=== PATIENT | male | born 1985 | race African-American/Black ===

== ENCOUNTER 2024-02-02 23:35 | Emergency (ER) | payer OTHER ==
[2024-02-02 23:47] VITALS: TEMP 98.7; BMI 45.6
[2024-02-03 01:57] VITALS: BP 151/88; PULSE 90; RESP 20
[2024-02-03 02:24] LABS: VENOUS BASE EXCESS 3.8 mmol/L (-2-2); VENOUS O2 SATURATION 43.3 % (70-80); VENOUS PH 7.333 (7.310-7.410)
[2024-02-03 02:26] LABS: BASO % 0.5 % (0-2.0); EOS % 1.8 % (0-4.5); HEMATOCRIT 43.8 % (35.4-49); HEMOGLOBIN 14.7 GM/dL (11.7-16.9); MCHC 33.5 g/dl (32.0-35.9); MEAN CELL VOLUME 92.5 fl (80-96); MEAN PLT VOLUME 9.2 fl (7.5-11.1); MONO % 8.8 % (3.8-10.2); NEUT % 70.9 % (42.8-82.8); PLATELET COUNT 197 10^3/uL (134-434); RBC 4.73 M/mm3 (4.00-5.60); RDW 17.3 % (11.9-15.9); WHITE BLOOD COUNT 10.9 K/mm3 (4.0-10.0)
[2024-02-03] MEDS: ALBUTEROL SO4 2.5/IPRATROPIUM 0.5 INH SOL 3 ML VIAL.NEB. NEB ONE (02:36)
[2024-02-03] MEDS ORDERED: ALBUTEROL SO4 2.5/IPRATROPIUM 0.5 INH SOL 3 ML VIAL.NEB. NEB ONE (02:38)
[2024-02-03 02:40] LABS: INR 1.24 (0.83-1.09); PROTHROMBIN TIME (PATIENT) 13.9 SEC (9.7-13.0)
[2024-02-03 02:44] LABS: POTASSIUM 4.8 mmol/L (3.5-5.1)
[2024-02-03 02:46] LABS: CALCIUM 8.8 mg/dL (8.5-10.1)
[2024-02-03 02:47] LABS: ALBUMIN 4.1 g/dl (3.4-5.0); BLOOD UREA NITROGEN 15.1 mg/dL (7-18); MAGNESIUM 1.9 mg/dL (1.8-2.4)
[2024-02-03 02:50] LABS: CREATININE 1.8 mg/dL (0.55-1.3)
[2024-02-03 02:51] LABS: BILIRUBIN,TOTAL 0.6 mg/dL (0.2-1); TOT PROT 8.3 g/dl (6.4-8.2)
[2024-02-03 02:55] LABS: N-TERMINAL BNP 16.2 pg/ml (5-125)
[2024-02-03] MEDS: LEVOTHYROXINE SODIUM 100 MCG 5 ML VIAL IVPUSH ONE (04:37)
== END 2024-02-03 06:05 | disposition left against medical advice (07) ==
LOC: JER 23:35
PROC: 3E033GC Introduction of Other Therapeutic Substance into Peripheral Vein, Percutaneous Approach (ICD-10-PCS; principal; 2024-02-03)
PROC: 3E0F7GC Introduction of Other Therapeutic Substance into Respiratory Tract, Via Natural or Artificial Opening (ICD-10-PCS; 2024-02-03)
DX: E03.9 Hypothyroidism, unspecified (principal); M79.89 Other specified soft tissue disorders; M79.671 Pain in right foot; R06.02 Shortness of breath
CPT/HCPCS: 36415; 71045-TC-FY; 80053; 82533; 82803; 83735; 83880; 84439; 84443; 84484; 85025; 85610; 93005; 93010; 93970-TC; 99285-25

== ENCOUNTER 2024-03-28 00:17 | Emergency (ER) | payer OTHER ==
[2024-03-28 00:25] VITALS: BP 133/82; PULSE 93; RESP 18; TEMP 98.4; BMI 50.5
[2024-03-28] MEDS ORDERED: IBUPROFEN 400 MG TABLET (FP) PO ONE (01:00)
[2024-03-28] MEDS: IBUPROFEN 400 MG TABLET (FP) PO ONE (01:04)
[2024-03-28] MEDS ORDERED: AMOX TR/POT CLAV 875MG/125MG TABLETS (FP) ONE (01:57)
[2024-03-28] MEDS ORDERED: AZITHROMYCIN 500 MG TABLET ONE (01:57)
[2024-03-28] MEDS: AMOX TR/POT CLAV 875MG/125MG TABLETS (FP) PO ONE (01:59)
[2024-03-28] MEDS: AZITHROMYCIN 250 MG TABLET PO ONE (01:59)
[2024-03-28 02:03] LABS: HIV INTERPRETATION NEGATIVE (NEGATIVE)
== END 2024-03-28 02:03 | disposition home or self-care (01) ==
LOC: JER 00:17
DX: R20.2 Paresthesia of skin (principal); R05.9 Cough, unspecified; Z20.822 Contact with and (suspected) exposure to COVID-19
CPT/HCPCS: 0241U-QW; 36415; 71046-TC-FY; 87389; 93005; 93010; 99285-25

== ENCOUNTER 2024-06-06 16:56 | Inpatient (IN) | payer OTHER ==
[2024-06-06] MEDS ORDERED: ONDANSETRON 4 MG/2 ML VIAL ONE (18:19)
[2024-06-06 18:25] LABS: VENOUS BASE EXCESS 5.4 mmol/L (-2-2); VENOUS O2 SATURATION 41.9 % (70-80); VENOUS PCO2 63.4 mmHg (38-52); VENOUS PH 7.341 (7.310-7.410)
[2024-06-06 18:25] LABS: WHITE BLOOD COUNT 9.1 K/mm3 (4.0-10.0)
[2024-06-06 18:26] LABS: BASO % 0.8 % (0-2.0); EOS % 3.2 % (0-4.5); HEMATOCRIT 44.7 % (35.4-49); HEMOGLOBIN 14.9 GM/dL (11.7-16.9); LYMPH % 25.1 % (8-40); MCH 30.2 pg (25.7-33.7); MCHC 33.4 g/dl (32.0-35.9); MEAN CELL VOLUME 90.5 fl (80-96); MONO % 6.5 % (3.8-10.2); NEUT % 64.4 % (42.8-82.8); PLATELET COUNT 217 10^3/uL (134-434); RBC 4.93 M/mm3 (4.00-5.60); RDW 15.5 % (11.9-15.9)
[2024-06-06] MEDS: LACTATED RINGERS SOLUTION 1000 ML INFUS.BAG IV ONE (18:36)
[2024-06-06] MEDS: ONDANSETRON 4 MG/2 ML VIAL IVPUSH ONE (18:37)
[2024-06-06 18:48] LABS: POTASSIUM 4.2 mmol/L (3.5-5.1)
[2024-06-06 18:50] LABS: CALCIUM 9.4 mg/dL (8.5-10.1)
[2024-06-06 18:51] LABS: ALBUMIN 3.7 g/dl (3.4-5.0); BLOOD UREA NITROGEN 14.6 mg/dL (7-18); MAGNESIUM 2.2 mg/dL (1.8-2.4)
[2024-06-06 18:54] LABS: CREATININE 1.9 mg/dL (0.55-1.3)
[2024-06-06 18:55] LABS: BILIRUBIN,TOTAL 0.3 mg/dL (0.2-1); TOT PROT 7.6 g/dl (6.4-8.2)
[2024-06-06 19:37] LABS: HIV INTERPRETATION NEGATIVE (NEGATIVE)
[2024-06-06 20:33] LABS: PH,URINE 5.5 (5.0-8.0); URINE APPEARANCE CLEAR; URINE BILIRUBIN NEGATIVE (NEGATIVE); URINE COLOR YELLOW; URINE GLUCOSE (UA) NEGATIVE (NEGATIVE); URINE KETONE NEGATIVE (NEGATIVE); URINE LEUK ESTERASE NEGATIVE (NEGATIVE); URINE NITRITE NEGATIVE (NEGATIVE); URINE PROTEIN NEGATIVE (NEGATIVE)
[2024-06-06 22:54] LABS: ALLENS TEST POSITIVE; ARTERIAL BLD GAS O2 SATURATION 98.8 % (95-98); ARTERIAL BLOOD GAS BASE EXCESS 3.6 mmol/L (-2-2); ARTERIAL BLOOD GAS PO2 155.1 mmHg (80-100); ARTERIAL BLOOD GAS pH 7.308 (7.350-7.450)
[2024-06-06 23:37] LABS: COCAINE, UR NEGATIVE (NEGATIVE); METHADONE, UR NEGATIVE (NEGATIVE); OPIATES, URI NEGATIVE (NEGATIVE); PHENCYCLIDINE,URINE POSITIVE (NEGATIVE); URINE AMPHETAMINES NEGATIVE (NEGATIVE); URINE BARBITURATES NEGATIVE (NEGATIVE); URINE BENZODIAZEPINES NEGATIVE (NEGATIVE)
[2024-06-07 02:06] VITALS: BMI 48.5
[2024-06-07 12:00] LABS: EOS % 3.7 % (0-4.5); HEMOGLOBIN 14.6 GM/dL (11.7-16.9); MCH 29.5 pg (25.7-33.7); MCHC 31.8 g/dl (32.0-35.9); MEAN CELL VOLUME 92.8 fl (80-96); MEAN PLT VOLUME 9.1 fl (7.5-11.1); MONO % 6.8 % (3.8-10.2); NEUT % 66.5 % (42.8-82.8); PLATELET COUNT 208 10^3/uL (134-434); RBC 4.96 M/mm3 (4.00-5.60); RDW 15.8 % (11.9-15.9); WHITE BLOOD COUNT 8.3 K/mm3 (4.0-10.0)
[2024-06-07 12:21] LABS: POTASSIUM 4.6 mmol/L (3.5-5.1)
[2024-06-07 12:23] LABS: ALBUMIN 3.6 g/dl (3.4-5.0); CALCIUM 9.5 mg/dL (8.5-10.1); MAGNESIUM 2.2 mg/dL (1.8-2.4)
[2024-06-07 12:24] LABS: BLOOD UREA NITROGEN 15.1 mg/dL (7-18)
[2024-06-07 12:26] LABS: CREATININE 1.9 mg/dL (0.55-1.3)
[2024-06-07 12:28] LABS: BILIRUBIN,TOTAL 0.3 mg/dL (0.2-1); TOT PROT 7.5 g/dl (6.4-8.2)
[2024-06-07] MEDS: DEXTROSE 5%-0.45% SALINE 1,000 ML IV SCH (12:38)
[2024-06-07 14:00] LABS: PH,URINE 5.5 (5.0-8.0); URINE APPEARANCE CLEAR; URINE BILIRUBIN NEGATIVE (NEGATIVE); URINE COLOR YELLOW; URINE GLUCOSE (UA) NEGATIVE (NEGATIVE); URINE KETONE NEGATIVE (NEGATIVE); URINE LEUK ESTERASE NEGATIVE (NEGATIVE); URINE NITRITE NEGATIVE (NEGATIVE); URINE PROTEIN NEGATIVE (NEGATIVE)
[2024-06-07] MEDS: INSULIN ASPART SLIDING SCALE (NOVOLOG) 1 VIAL SQ SCH (17:06)
[2024-06-08] MEDS: LEVOTHYROXINE NA 50 MCG TABLET (FP) PO SCH (06:15)
[2024-06-08 07:58] LABS: BASO % 0.7 % (0-2.0); EOS % 3.8 % (0-4.5); HEMATOCRIT 45.4 % (35.4-49); HEMOGLOBIN 14.5 GM/dL (11.7-16.9); LYMPH % 27.8 % (8-40); MCH 29.8 pg (25.7-33.7); MCHC 31.9 g/dl (32.0-35.9); MEAN CELL VOLUME 93.4 fl (80-96); MEAN PLT VOLUME 9.5 fl (7.5-11.1); MONO % 7.9 % (3.8-10.2); NEUT % 59.8 % (42.8-82.8); PLATELET COUNT 209 10^3/uL (134-434); RBC 4.86 M/mm3 (4.00-5.60); RDW 15.8 % (11.9-15.9); WHITE BLOOD COUNT 8.2 K/mm3 (4.0-10.0)
[2024-06-08 08:12] LABS: POTASSIUM 4.6 mmol/L (3.5-5.1)
[2024-06-08 08:24] LABS: CREATININE 1.8 mg/dL (0.55-1.3)
[2024-06-08 08:25] LABS: ALBUMIN 3.6 g/dl (3.4-5.0); BILIRUBIN,TOTAL 0.3 mg/dL (0.2-1); BLOOD UREA NITROGEN 18.8 mg/dL (7-18); CALCIUM 9.7 mg/dL (8.5-10.1); TOT PROT 7.6 g/dl (6.4-8.2)
[2024-06-08] MEDS: ENOXAPARIN NA (PORCINE) 40 MG/0.4 ML DISP.SYRIN SQ SCH (10:22)
[2024-06-08 13:55] VITALS: BP 130/88; RESP 18; TEMP 97.5
[2024-06-08 14:52] VITALS: PULSE 72
== END 2024-06-08 18:30 | disposition home or self-care (01) | DRG 896 ==
LOC: JER 16:56 → JERFT 16:56 → JERBED 22:39 → J4S 06-07 01:53 → OBSVTOIN 06-07 11:46
PROVIDERS: ADMIT Internal Medicine; ATTEND Internal Medicine
DX: F16.921 Hallucinogen use, unspecified with intoxication with delirium (principal); G92.9 Unspecified toxic encephalopathy; J96.90 Respiratory failure, unspecified, unspecified whether with hypoxia or hypercapnia; N17.9 Acute kidney failure, unspecified; Z68.42 Body mass index [BMI] 45.0-49.9, adult; E05.00 Thyrotoxicosis with diffuse goiter without thyrotoxic crisis or storm; I12.9 Hypertensive chronic kidney disease with stage 1 through stage 4 chronic kidney disease, or unspecified chronic kidney disease; E66.01 Morbid (severe) obesity due to excess calories; E11.22 Type 2 diabetes mellitus with diabetic chronic kidney disease; E03.9 Hypothyroidism, unspecified; N18.9 Chronic kidney disease, unspecified; F17.210 Nicotine dependence, cigarettes, uncomplicated
CPT/HCPCS: 0241U-QW; 36415; 36600; 71045-TC-FY; 76775-TC; 80053; 80307; 81003; 82010; 82570; 82803; 82962; 83735; 84156; 84439; 84443; 84484; 85025; 86803; 87086; 87389; 93005; 93010; 94660; 99285-25; G0378

== ENCOUNTER 2024-09-20 11:20 | Emergency (ER) | payer OTHER ==
[2024-09-20 11:29] VITALS: BP 165/107; PULSE 73; RESP 18; TEMP 97.9; BMI 43.2
[2024-09-20] MEDS ORDERED: ACETAMINOPHEN INJECTION 100 ML ONE (12:18)
[2024-09-20] MEDS ORDERED: MECLIZINE HCL 25 MG TABLET (FP) ONE (12:18)
[2024-09-20] MEDS ORDERED: METOCLOPRAMIDE HCL INJECTION 10 MG/2 ML VIAL ONE (12:18)
[2024-09-20] MEDS: SODIUM CHLORIDE 0.9% 500 ML INFUS.BAG IV ONE (12:45)
[2024-09-20] MEDS: ACETAMINOPHEN 1000 MG/100 ML BAG IVPB ONE (12:45)
[2024-09-20] MEDS: METOCLOPRAMIDE HCL INJECTION 10 MG/2 ML VIAL IVPB ONE (12:46)
[2024-09-20] MEDS: MECLIZINE HCL 25 MG TABLET (FP) PO ONE (12:46)
[2024-09-20 12:47] LABS: BASO % 1.4 % (0-2.0); EOS % 3.1 % (0-4.5); HEMATOCRIT 40.9 % (35.4-49); HEMOGLOBIN 13.7 GM/dL (11.7-16.9); LYMPH % 32.2 % (8-40); MCH 30.7 pg (25.7-33.7); MCHC 33.5 g/dl (32.0-35.9); MEAN CELL VOLUME 91.7 fl (80-96); MEAN PLT VOLUME 9.4 fl (7.5-11.1); MONO % 7.4 % (3.8-10.2); NEUT % 55.9 % (42.8-82.8); PLATELET COUNT 190 10^3/uL (134-434); RBC 4.46 M/mm3 (4.00-5.60); RDW 16.9 % (11.9-15.9); WHITE BLOOD COUNT 6.1 K/mm3 (4.0-10.0)
[2024-09-20 13:06] LABS: ALBUMIN 3.6 g/dl (3.4-5.0); BLOOD UREA NITROGEN 18.2 mg/dL (7-18); CALCIUM 8.8 mg/dL (8.5-10.1); MAGNESIUM 2.3 mg/dL (1.8-2.4)
[2024-09-20 13:10] LABS: BILIRUBIN,TOTAL 0.4 mg/dL (0.2-1); CREATININE 1.7 mg/dL (0.55-1.3)
[2024-09-20 13:12] LABS: TOT PROT 7.8 g/dl (6.4-8.2)
[2024-09-20 15:17] LABS: HIV INTERPRETATION NEGATIVE (NEGATIVE)
== END 2024-09-20 17:24 | disposition home or self-care (01) ==
LOC: JER 11:20
PROC: 3E033NZ Introduction of Analgesics, Hypnotics, Sedatives into Peripheral Vein, Percutaneous Approach (ICD-10-PCS; principal; 2024-09-20)
PROC: 3E033GC Introduction of Other Therapeutic Substance into Peripheral Vein, Percutaneous Approach (ICD-10-PCS; 2024-09-20)
DX: G43.909 Migraine, unspecified, not intractable, without status migrainosus (principal); R42 Dizziness and giddiness; Z20.822 Contact with and (suspected) exposure to COVID-19
CPT/HCPCS: 0241U-QW; 36415; 70450-TC; 80053; 82962; 83735; 84439; 84443; 85025; 86803; 87389; 93005; 93010; 99285-25; J0131

== ENCOUNTER 2024-12-10 00:34 | Emergency (ER) | payer OTHER ==
[2024-12-10 00:44] VITALS: TEMP 99.3; BMI 46.0
[2024-12-10] MEDS ORDERED: FAMOTIDINE 20 MG/50 ML IVPB 20 MG/50 ML MG IVPB ONE (01:25)
[2024-12-10] MEDS ORDERED: MAG HYDROX/AL HYDROX/SIMETH 30 ML UNIT-DOSE CUP ONE (01:25)
[2024-12-10] MEDS ORDERED: METOCLOPRAMIDE HCL INJECTION 10 MG/2 ML VIAL ONE (01:25)
[2024-12-10] MEDS: FAMOTIDINE 20 MG/50 ML IVPB 20 MG/50 ML MG IVPB ONE (02:05)
[2024-12-10] MEDS: MAG HYDROX/AL HYDROX/SIMETH -MYLANTA- ORAL SUSPENSION PO ONE (02:05)
[2024-12-10] MEDS: METOCLOPRAMIDE HCL INJECTION 10 MG/2 ML VIAL IVPUSH ONE (02:05)
[2024-12-10 02:09] LABS: ABSOLUTE IMMATURE GRANULOCYTES 0.03 x10^3/uL (0.0-0.031); BASOPHILS # 0.09 x10^3/uL (0.01-0.08); EOSINOPHIL % 2.4 % (0.8-7.0); EOSINOPHILS # 0.24 x10^3/uL (0.04-0.54); HEMATOCRIT 43.8 % (40.1-51.0); HEMOGLOBIN 14.2 g/dL (13.7-17.5); MCHC 32.4 g/dl (32.3-36.5); MEAN CELL VOLUME 94.2 fl (79.0-92.2); MEAN PLT VOLUME 11.3 fl (9.4-12.4); MONOCYTE # 0.69 x10^3/uL (0.30-0.82); PLATELET COUNT 234 x10^3/uL (163-337); RDW 14.8 % (12.1-15.9)
[2024-12-10 02:10] VITALS: BP 128/89; PULSE 87; RESP 25
[2024-12-10 02:27] LABS: CHLORIDE 105 mmol/L (98-107); SODIUM 140 mmol/L (136-145)
[2024-12-10 02:29] LABS: MAGNESIUM 2.1 mg/dL (1.8-2.4)
[2024-12-10 02:30] LABS: ALBUMIN 3.9 g/dl (3.4-5.0); ANION GAP 5 mmol/L (4-13); BLOOD UREA NITROGEN 13.7 mg/dL (7-18); CALCIUM 9.3 mg/dL (8.5-10.1); CO2 30 mmol/L (21-32); GLUCOSE,RANDOM 96 mg/dL (74-106)
[2024-12-10 02:32] LABS: CREATININE 1.8 mg/dL (0.55-1.3); SGOT/AST 17 U/L (15-37); SGPT/ALT 18 U/L (13-61)
[2024-12-10 02:33] LABS: PHOSPHOROUS 3.3 mg/dL (2.5-4.9)
[2024-12-10 02:34] LABS: TOT PROT 7.6 g/dl (6.4-8.2)
[2024-12-10 02:35] LABS: BILIRUBIN,TOTAL 0.3 mg/dL (0.2-1)
[2024-12-10 02:36] LABS: ALK PHOS 74 U/L (45-117)
[2024-12-10] MEDS ORDERED: ONDANSETRON 4 MG/2 ML VIAL ONE (03:22)
[2024-12-10 03:24] LABS: HCV DIAGNOSTIC IN-HOUSE W/RFLX NON-REACTIVE (NONREACTIVE)
[2024-12-10 03:25] LABS: HIV INTERPRETATION NEGATIVE (NEGATIVE)
[2024-12-10] MEDS: ONDANSETRON 4 MG/2 ML VIAL IVPUSH ONE (03:27)
[2024-12-10 10:01] LABS: N-TERMINAL BNP 27.2 pg/ml (5-125)
== END 2024-12-10 03:55 | disposition home or self-care (01) ==
LOC: JER 00:34
PROC: 3E033GC Introduction of Other Therapeutic Substance into Peripheral Vein, Percutaneous Approach (ICD-10-PCS; principal; 2024-12-10)
PROC: 3E033GC Introduction of Other Therapeutic Substance into Peripheral Vein, Percutaneous Approach (ICD-10-PCS; 2024-12-10)
PROC: 3E033GC Introduction of Other Therapeutic Substance into Peripheral Vein, Percutaneous Approach (ICD-10-PCS; 2024-12-10)
DX: R53.1 Weakness (principal); R11.0 Nausea; R07.89 Other chest pain
CPT/HCPCS: 0241U-QW; 36415; 71045-TC-FY; 76705-TC; 80053; 82550; 82553; 83690; 83735; 83880; 84100; 84484; 85025; 86803; 87389; 93005; 93010; 99285-25

== ENCOUNTER 2025-01-02 21:22 | Emergency (ER) | payer OTHER ==
[2025-01-02 21:34] VITALS: BP 149/77; PULSE 73; RESP 18; TEMP 97.9; BMI 42.5
[2025-01-02] MEDS ORDERED: LIDOCAINE PATCH REMOVAL MC SCH (22:00)
[2025-01-02] MEDS ORDERED: KETOROLAC TROMETHAMINE 15 MG/ML VIAL ONE (22:20)
[2025-01-02] MEDS ORDERED: LIDOCAINE 4% PATCH TP ONE (22:20)
[2025-01-02] MEDS ORDERED: ACETAMINOPHEN 500 MG TABLET (FP) ONE (22:20)
[2025-01-02] MEDS: ACETAMINOPHEN 500 MG TABLET (FP) PO ONE (22:36)
[2025-01-02] MEDS: LIDOCAINE 5% TOPICAL PATCH TP ONE (22:37)
[2025-01-02] MEDS: KETOROLAC TROMETHAMINE 15 MG/ML VIAL IM ONE (22:37)
== END 2025-01-02 23:00 | disposition home or self-care (01) ==
LOC: JERFT 21:22
PROC: 3E0233Z Introduction of Anti-inflammatory into Muscle, Percutaneous Approach (ICD-10-PCS; principal; 2025-01-02)
DX: S20.224A Contusion of middle back wall of thorax, initial encounter (principal); V44.6XXA Car passenger injured in collision with heavy transport vehicle or bus in traffic accident, initial encounter; Y92.410 Unspecified street and highway as the place of occurrence of the external cause
CPT/HCPCS: 99284-25